=== PATIENT | male | born 1945 | race Caucasian/White ===

== ENCOUNTER 2019-09-04 07:38 | Day surgery (SDC) | payer SELFPAY | END 2019-09-04 12:20 | disposition home or self-care (01) | LOC: OR 09-06 11:27 | PROVIDERS: PCP Internal Medicine; Visit Provider Ophthalmology | DX: H02.839 Dermatochalasis of unspecified eye, unspecified eyelid (principal) ==

== ENCOUNTER 2019-09-04 07:38 | Day surgery (SDC) | payer MEDICARE, OTHER, SELFPAY ==
--- NOTE | 2019-09-03 16:03 | PM.PREOP ---
Pre-operative Note Interval Note History & Physical reviewed/Exam performed by Physician: Yes Changes to H&P: No
[2019-09-04 08:27] VITALS: BP 143/90; PULSE 73; RESP 16; TEMP 36.3; O2SAT 100; BMI 23.6
--- NOTE | 2019-09-04 08:28 | PM.OP.1 ---
Operative Date/Time/Diagnoses Date of procedure: 09/04/19 Time of procedure: 09:00 Procedure & Clinicians Procedure: Preoperative diagnoses: 1. Bilateral upper lid dermatochalasis 2. Bilateral lower lid ectropion 3. Cosmetic lower lid herniated fat pad removal Postoperative diagnoses: 1. Bilateral upper lid dermatochalasis treated with blepharoplasty 2. Status post ectropion repair 3. Punctal malrotation with punctal stenosis. 4. Status post removal herniated lower fat pads. Procedure: Bilateral upper blepharoplasty for functional symptoms. Bilateral lower lid functional ectropion repair. Bilateral lower lid fat pad removal. Surgeon: Megan Benito MD Complications: none Specimen: None Blood loss: Less than 3 mL Anesthesia: Local infiltration with monitored standby. Indications: Bilateral upper lids obstructing superior vision. Preoperative external photographs taken and loss of vision to within 2 mm of marginal light reflex. Functional surgery. Bilateral lower lid laxity with exposure symptoms and malrotated puncta. Patient presents with excessive irritation and tearing from exposure due to bilateral lower lid laxity malposition the of the lacrimal puncta which were also closed. The patient has failed conservative measures including lubrication and antibiotic ointment and desires surgery to improve these symptoms. Procedure: In the preoperative holding area the amount skin and subcutaneous tissue to be removed was marked with indelible ink. The contours were carefully checked for symmetry and planned procedure discussed with the patient. The patient was taken to the operating room. IV sedation was given. Proparacaine drops were placed in both eyes for comfort. Local infiltration of anesthetic 2.5 cc into each upper lid and lateral canthus bilaterally, consisting of 1% xylocaine with epinephrine, normal saline and 1 cc hyaluronidase was placed. This was then supplemented with full strength 2% xylocaine with epinephrine, 0.5% bupivacaine, and 1 cc hyaluronidase. The face was prepped in an open manner. Attention was placed to the right upper lid. Using the previous parham a number 15. Bard-Luis Felipe blade was used to incise a skin muscle flap. The flap was lifted and removed. Cautery was applied as needed. Contouring of the muscle belly was also performed. Exploration of the nasal and preoperneurotic fat pads were performed removal and contouring with hemostat and scissors as well as cautery were performed. The lid was then closed with running and interrupted 6 0 Vicryl sutures. Attention was placed to the right lower lid. A punctal dilator was used to enlarge the punctum. It was then probed to the nose. Tenotomy scissors were used to make a 3 snip procedure to enlarge the punctum permanently. Attention was placed to the lateral canthus. A number 15 Bard-Luis Felipe blade was used to make an incision for 1 cm. The periosteum was exposed. Cautery was used as needed. The inferior canthal tendon was lysed with scissors. A tarsal strip was formed with clearance of the anterior and posterior lamella and any exposed lashes. Minimal shortening was performed. The strip was then transected with 5.0 Mersilene type suture which was placed double-armed through the periosteum and tied with multiple knots at the orbital rim. The outer tarsus and lid was then closed with 6 0 interrupted sutures. The procedure was repeated on the left side in identical fashion. There was minimal bleeding. The patient returned to the recovery room in good condition. Sutures will be removed in the office in approximately 10 days. Attention was placed to the lower lid. A subciliary incision was made under the lash. This extended the full length of the lower lid. It was blunt dissected inferiorly with the orbital septum then exposed. The orbital septum was then opened. Each medial, central, and temporal fat pads were each isolated. Hemostasis was used with the clamp as needed. They were removed with scissors and then cauterized as needed without tension. Once the contour was as desired, the lid flap was repositioned and closed with interrupted and running 6 .0 Vicryl sutures. Same procedure was repeated for the left upper lid and lower lid as well as the punctum and lateral canthus tarsal strip procedure. The Betadine was removed. Maxitrol ointment was placed to suture line. The patient returned to recovery room in stable condition. Instructions for postoperative cold packs were reviewed. Megan Benito MD.
[2019-09-04] MEDS: LACTATED RINGERS 1,000 ML 42 ML IV (08:41)
--- NOTE | 2019-09-04 09:17 | SUR.OPER ---
Supine on eye stretcher, head on extension cradle secured with tape. Arms tucked at sides with blanket. Pillow under knees.
[2019-09-04] MEDS: PROPARACAINE 0.5% OPHTH SOL 2 DROPS EYE-BOTH (09:33)
[2019-09-04] MEDS: LIDOCAINE 1% W/EPI 3 ML, SODIUM CHLORIDE 0.9% 2 ML, HYALURONIDASE 150 UNIT INJ (09:34)
[2019-09-04] MEDS: LIDOCAINE 2% W/EPI 3 ML, BUPIVACAINE 0.5% (PF) 2 ML, HYALURONIDASE 150 UNIT INJ (09:36)
[2019-09-04 11:22] VITALS: BP 137/85; PULSE 69; RESP 17; TEMP 36.9; O2SAT 97
[2019-09-04] MEDS: ACETAMINOPHEN 325 MG TABLET 975 MG PO (11:28)
[2019-09-04 12:07] VITALS: BP 160/80; PULSE 65; RESP 18; TEMP 36.3; O2SAT 98
== END 2019-09-04 12:20 | disposition home or self-care (01) ==
LOC: OR 07:43
PROVIDERS: PCP Internal Medicine; Visit Provider Ophthalmology
PROC: (CPT 67917; principal; 2019-09-04 09:45)
PROC: (CPT 67917; 2019-09-04 09:45)
DX: H02.834 Dermatochalasis of left upper eyelid (principal); H02.831 Dermatochalasis of right upper eyelid; H02.102 Unspecified ectropion of right lower eyelid; H02.105 Unspecified ectropion of left lower eyelid; I51.9 Heart disease, unspecified; Z95.1 Presence of aortocoronary bypass graft; E78.00 Pure hypercholesterolemia, unspecified; Z72.0 Tobacco use
CPT/HCPCS: 67917; 15823; J2250; J2704; J3470